=== PATIENT | male | born 1965 | race Two or more races ===

== ENCOUNTER 2018-04-30 16:01 | Emergency (ER) | payer OTHER ==
[~2018-04-30] VITALS: Ht 182.9 cm; Wt 107.3 kg
[2018-04-30] MEDS ORDERED: PERCOCET 5/31 TABLET PO ×2 (18:36→20:15)
[2018-04-30] MEDS ORDERED: NAPROSYN500 MG PO (18:36)
[2018-04-30 21:10] VITALS: BP 159/80
== END 2018-04-30 21:10 | disposition home or self-care (01) ==
LOC: EME 16:01
PROC: 0QSGXZZ Reposition Right Tibia, External Approach (ICD-10-PCS; principal; 2018-04-30)
DX: S82.851A Displaced trimalleolar fracture of right lower leg, initial encounter for closed fracture (principal); X50.1XXA Overexertion from prolonged static or awkward postures, initial encounter; Y93.01 Activity, walking, marching and hiking; Y99.0 Civilian activity done for income or pay; F17.200 Nicotine dependence, unspecified, uncomplicated
CPT/HCPCS: 73600; 99281; 99285; J3010; J7120